=== PATIENT | male | born 1965 | race Hispanic/Latino ===

== ENCOUNTER → 2021-04-06 | Outpatient (CLI) | payer BC ==
[~2021-04-06] VITALS: Ht 172.7 cm; Wt 88.5 kg
[~2021-04-06] MED LIST: AMLO-257 PO; GLIM4TAB36 PO; HYDR-4457 PO; LISI40TA9 PO; METF-446 PO; REGADENOSON 0.4 MG/5 ML PF SYG IVP SCH; ROSU20TA23 PO; VICTOZA SQ
== END | disposition home or self-care (01) ==
LOC: SHCH 13:01
PROVIDERS: ATTEND Internal Medicine Cardiovascular Disease
DX: I51.7 Cardiomegaly (principal); I20.0 Unstable angina; E66.9 Obesity, unspecified; E78.5 Hyperlipidemia, unspecified; E11.9 Type 2 diabetes mellitus without complications
CPT/HCPCS: 93306; 93356

== ENCOUNTER → 2021-04-10 | Outpatient (CLI) | payer BC ==
[~2021-04-10] MED LIST changes: +REGADENOSON 0.4 MG/5 ML PF SYG IVP ONE; -REGADENOSON 0.4 MG/5 ML PF SYG IVP SCH
== END | disposition home or self-care (01) ==
LOC: SHCH 07:59
PROVIDERS: ATTEND Internal Medicine Cardiovascular Disease
DX: R94.31 Abnormal electrocardiogram [ECG] [EKG] (principal); I20.0 Unstable angina; R06.09 Other forms of dyspnea; I99.8 Other disorder of circulatory system
CPT/HCPCS: 78452; 93017; 96374; A9500 ×2; J2785

== ENCOUNTER 2021-06-06 05:45 | Day surgery (SDC) | payer BC ==
[2021-06-01 09:35] LABS: BASOPHILS % (AUTO) 0.6 % (0.0-5.0); EOSINOPHILS % (AUTO) 2.3 % (0.0-8.0); HEMATOCRIT 53.3 % (42-54); LYMPHOCYTES % (AUTO) 32.5 % (21.0-51.0); MEAN CORPUSCULAR HEMOGLOBIN 25.7 pg (27.0-33.0); MEAN CORPUSCULAR HGB CONC 30.8 g/dL (32.0-36.0); MEAN CORPUSCULAR VOLUME 83.4 fL (79-99); MONOCYTES % (AUTO) 9.7 % (3.0-13.0); NEUTROPHILS % (AUTO) 54.7 % (40.0-77.0); PLATELET COUNT (AUTO) 225 K/uL (130-400); RED BLOOD CELL COUNT(AUTO) 6.39 MIL/uL (4.50-6.20); RED CELL DISTRIBUTION WIDTH 13.6 % (11.0-15.5); WHITE BLOOD COUNT (AUTO) 5.1 K/uL (4.8-10.8)
[2021-06-01 09:42] LABS: APPEARANCE,URINE Clear (CLEAR); BILIRUBIN,URINE Negative (NEGATIVE); COLOR,URINE Yellow (YELLOW); GLUCOSE, URINE (UA) >=1000 mg/dL (NEGATIVE); KETONES,URINE Trace mg/dL (NEGATIVE); LEUKOCYTE ESTERASE ,URINE Small (NEGATIVE); NITRATE,URINE Negative (NEGATIVE); OCCULT BLOOD,URINE Trace (NEGATIVE); PROTEIN,URINE Negative (NEGATIVE); UROBILINOGEN,URINE 0.2 mg/dL (0.2-1.0)
[2021-06-01 09:45] LABS: BACTERIA,URINE Rare /HPF (None Seen); RBC,URINE 0-1 /HPF (0-1); SQUAMOUS EPITHELIAL CELL,UR Rare /HPF (0-2)
[2021-06-01 09:45] LABS: CREATININE 1.5 mg/dL (0.5-1.5); POTASSIUM 4.7 mmol/L (3.5-5.1)
[2021-06-01 09:52] LABS: PROTHROMBIN TIME 10.9 SEC (9.6-11.6)
[2021-06-01 09:53] LABS: PARTIAL THROMBOPLASTIN TIME 26.5 SEC (26.3-35.5)
[2021-06-05 13:33] VITALS: BP 146/74
[2021-06-06] VITALS (12 sets, daily range): BP systolic 117–159; BP diastolic 46–85
[~2021-06-06] VITALS: Ht 172.7 cm; Wt 84.9 kg
[~2021-06-06 05:45] MED LIST changes: -AMLO-257 PO; +ATOR40TA71 PO; +DAPA10TA PO; -HYDR-4457 PO; +INSLAN SQ; -LISI40TA9 PO; -REGADENOSON 0.4 MG/5 ML PF SYG IVP ONE; -ROSU20TA23 PO
[2021-06-06] MEDS: 0.9%NACL 1000ML 1,000 ML IV SCH ×2 (06:40→07:04)
[2021-06-06] MEDS ORDERED: NITROGLYCERIN 50MG VIAL IV ONE (07:09)
[2021-06-06] MEDS ORDERED: IOHEXOL-350 50ML VIAL IV ONE (07:09)
[2021-06-06] MEDS ORDERED: IOHEXOL 350 MG/ML 100ML INFUS..BTL IV ONE (07:09)
[2021-06-06] MEDS ORDERED: LIDOCAINE HCL 400MG/20ML VIAL ONE (07:10)
[2021-06-06] MEDS ORDERED: FENTANYL CITRATE PF 50 MCG/1 ML 2ML VIAL ONE (07:10)
[2021-06-06] MEDS ORDERED: MIDAZOLAM HCL 1 MG/ML 2ML VIAL ONE (07:10)
[2021-06-06] MEDS ORDERED: LABETALOL 20MG VIAL IV ONE (08:05)
[2021-06-06] MEDS ORDERED: METOPROLOL TARTRATE 1 MG/ML 5ML VIAL IV PRN (08:30)
[2021-06-06] MEDS ORDERED: NITROGLYCERIN 0.4 MG SL TAB SL PRN (08:30)
[2021-06-06] MEDS ORDERED: DEXTROSE 50%-WATER 50 ML DISP.SYRIN IV PRN (08:30)
[2021-06-06] MEDS ORDERED: HYDRALAZINE 20MG/ML VIAL IV PRN (08:30)
[2021-06-06] MEDS ORDERED: GLUCAGON 1MG KIT 1 MG ML IM PRN (08:30)
[2021-06-06] MEDS ORDERED: 0.9%NACL 1000ML 1,000 ML IV SCH (08:30)
[2021-06-06] MEDS ORDERED: ISOSORBIDE MONO 30MG SR TAB PO SCH (09:00)
[2021-06-06] MEDS ORDERED: ASPIRIN 81MG CHEW TAB PO SCH (09:00)
[2021-06-06] MEDS ORDERED: INSULIN HUMULIN R 100 UNIT/ML 3ML SQ SCH (11:30)
[2021-06-12] MEDS ORDERED: RANO500T6 PO (14:43)
[2021-06-12] MEDS ORDERED: ASPI-1443 PO (14:43)
[2021-06-12] MEDS ORDERED: HYDR12.54 PO (14:43)
[2021-06-12] MEDS ORDERED: ISOS60TA77 PO (14:43)
[2021-06-12] MEDS ORDERED: METO-391 PO (14:43)
== END 2021-06-06 16:25 | disposition home or self-care (01) ==
LOC: DAH 05:45
PROVIDERS: ATTEND Internal Medicine Cardiovascular Disease
DX: I25.118 Atherosclerotic heart disease of native coronary artery with other forms of angina pectoris (principal); E11.51 Type 2 diabetes mellitus with diabetic peripheral angiopathy without gangrene; I25.82 Chronic total occlusion of coronary artery; I11.0 Hypertensive heart disease with heart failure; I50.32 Chronic diastolic (congestive) heart failure; E66.3 Overweight; E78.5 Hyperlipidemia, unspecified; Z79.82 Long term (current) use of aspirin; Z79.01 Long term (current) use of anticoagulants; Z79.899 Other long term (current) drug therapy; Z98.890 Other specified postprocedural states; Z72.89 Other problems related to lifestyle; Z82.49 Family history of ischemic heart disease and other diseases of the circulatory system; Z83.3 Family history of diabetes mellitus; Z87.891 Personal history of nicotine dependence; Z79.4 Long term (current) use of insulin; Z68.29 Body mass index [BMI] 29.0-29.9, adult
CPT/HCPCS: 36415; 71045; 80048; 81001; 82948 ×2; 85025; 85610; 85730; 87088; 93005; 93458; 93880; 93931; 94010; A4215; A4216; A4221; A4222; A4223 ×3; A4606; A4663; C1894 ×2; J1644; J1815; J2250; J3010; J3490 ×3; J7030; Q9965; Q9967 ×2; 99156; 99157

== ENCOUNTER 2021-06-13 07:30 | Inpatient (IN) | payer BC ==
[2021-06-12 14:11] VITALS: BP 139/77
[~2021-06-13] VITALS: Ht 172.7 cm; Wt 85.3 kg
[~2021-06-13 07:30] MED LIST changes: +ASPI-1443 PO; +HYDR12.54 PO; +ISOS60TA77 PO; +METO-391 PO; +RANO500T6 PO
[2021-06-14] VITALS (33 sets, daily range): BP systolic 100–164; BP diastolic 54–97
[2021-06-14] MEDS ORDERED: 0.9%NACL 1000ML 1,000 ML IV ONE (06:57)
[2021-06-14] MEDS ORDERED: NOREPINEPHRINE BITARTRATE 8 MG in DEXTROSE 5%-WATER 250 ML IV PRN (07:00)
[2021-06-14] MEDS ORDERED: DILTIAZEM 125MG+100 ML NS 125 ML IV PRN (07:00)
[2021-06-14] MEDS ORDERED: AMINOCAPROIC ACID 5,000MG VIAL 15,000 MG in 0.9% NACL 500ML IV.SOLN 420 ML IV PRN (07:00)
[2021-06-14] MEDS ORDERED: EPINEPHRINE PF 1MG AMP 10 MG in 0.9% NACL 250ML 240 ML IV PRN (07:00)
[2021-06-14 07:13] LABS: HEMOGLOBIN A1C 11.2 % (4.0-6.0)
[2021-06-14] MEDS ORDERED: NITROGLYCERIN 50MG/D5W 250ML 1 BOT ONE (07:21)
[2021-06-14] MEDS ORDERED: DELNIDO FORMULA 2 BAG IV ONE (07:26)
[2021-06-14] MEDS ORDERED: NOREPINEPHRINE BITARTRATE 1 MG/1 ML ML IV ONE ×3 (07:27→11:52)
[2021-06-14] MEDS ORDERED: CEFUROXIME SODIUM 1.5 GM VIAL ONE ×3 (07:46→22:28)
[2021-06-14] MEDS ORDERED: ESMOLOL HCL 10 MG/ML 10 ML VIAL ONE (07:51)
[2021-06-14] MEDS ORDERED: LIDOCAINE PF 100MG/5ML (2%) SYRINGE 5ML ONE (07:52)
[2021-06-14] MEDS ORDERED: SODIUM BICARB 50MEQ 50ML VIAL 150 ML ONE (07:52)
[2021-06-14] MEDS ORDERED: HEPARIN 10,000 UNIT/10ML (1,000 UNIT/ML) VIAL ONE ×2 (07:52→09:00)
[2021-06-14] MEDS ORDERED: EPINEPHRINE PF 1MG AMP ONE (07:52)
[2021-06-14] MEDS ORDERED: AMINOCAPROIC ACID 5,000MG VIAL ONE (07:52)
[2021-06-14] MEDS ORDERED: PROTAMINE SULFATE 10 MG/ML 25ML VIAL IV ONE (07:52)
[2021-06-14] MEDS ORDERED: ROCURONIUM 10MG/1ML SYR 10 MG/ML ML ONE ×2 (07:53→11:30)
[2021-06-14] MEDS ORDERED: MIDAZOLAM HCL 1 MG/ML 2ML VIAL ONE (07:53)
[2021-06-14] MEDS ORDERED: PROPOFOL 10 MG/ML 20ML VIAL IV ONE (07:53)
[2021-06-14] MEDS ORDERED: FENTANYL CITRATE PF 50 MCG/1 ML 20ML VIAL IJ ONE (07:53)
[2021-06-14] MEDS ORDERED: KETAMINE 50MG/ML SYRINGE 50 MG/ML DISP.SYRIN IV ONE (07:55)
[2021-06-14 08:37] LABS: ABG BASE EXCESS -4.2 mmol/L (-2.0-3.0); ABG HCO3 20.8 mmol/L (21.0-28.0); ABG OXYGEN SATURATION 99.3 % (95.0-99.0); ABG PCO2 38 mmHg (35-48)
[2021-06-14] MEDS ORDERED: PAPAVERINE HCL 30 MG/ML 2ML VIAL ONE (09:00)
[2021-06-14 11:01] LABS: ABG BASE EXCESS -3.8 mmol/L (-2.0-3.0); ABG HCO3 20.9 mmol/L (21.0-28.0); ABG OXYGEN SATURATION 98.9 % (95.0-99.0); ABG PCO2 36 mmHg (35-48)
[2021-06-14] MEDS ORDERED: THROMBIN-JMI 20000 UNIT KIT TP ONE (11:38)
[2021-06-14 11:42] LABS: ABG HCO3 21.5 mmol/L (21.0-28.0); ABG OXYGEN SATURATION 98.6 % (95.0-99.0); ABG PCO2 36 mmHg (35-48)
[2021-06-14] MEDS ORDERED: CACL 1GM SYG IVP ONE (11:52)
[2021-06-14] MEDS ORDERED: MANNITOL 25% 50ML VIAL IV ONE (11:52)
[2021-06-14] MEDS ORDERED: HEPARIN 10,000 UNIT/10ML (1,000 UNIT/ML) VIAL IV ONE (11:52)
[2021-06-14] MEDS ORDERED: AMINOCAPROIC ACID 5,000MG VIAL IV ONE (11:52)
[2021-06-14] MEDS ORDERED: SODIUM BICARB 8.4% 50ML SYRINGE IVP ONE (11:52)
[2021-06-14] MEDS ORDERED: ALBUMIN (HUMAN) 25% 50 ML IV ONE (11:52)
[2021-06-14 12:20] LABS: ABG BASE EXCESS -3.6 mmol/L (-2.0-3.0); ABG HCO3 21.1 mmol/L (21.0-28.0); ABG OXYGEN SATURATION 98.4 % (95.0-99.0); ABG PCO2 37 mmHg (35-48)
[2021-06-14 13:28] LABS: ABG BASE EXCESS -4.8 mmol/L (-2.0-3.0); ABG HCO3 19.5 mmol/L (21.0-28.0); ABG PCO2 34 mmHg (35-48)
[2021-06-14 13:30] LABS: HEMATOCRIT 37.8 % (42-54); MEAN CORPUSCULAR HEMOGLOBIN 26.5 pg (27.0-33.0); MEAN CORPUSCULAR VOLUME 82.7 fL (79-99); RED BLOOD CELL COUNT(AUTO) 4.57 MIL/uL (4.50-6.20); RED CELL DISTRIBUTION WIDTH 13.5 % (11.0-15.5); WHITE BLOOD COUNT (AUTO) 8.5 K/uL (4.8-10.8)
[2021-06-14 13:40] LABS: CREATININE 1.2 mg/dL (0.5-1.5); POTASSIUM 4.1 mmol/L (3.5-5.1)
[2021-06-14 13:44] LABS: INR 1.23 (0.85-1.15); MAGNESIUM 2.2 mg/dL (1.80-2.40); PHOSPHORUS 3.3 mg/dL (2.5-4.9); PROTHROMBIN TIME 13.2 SEC (9.6-11.6)
[2021-06-14 13:46] LABS: PARTIAL THROMBOPLASTIN TIME 25.6 SEC (26.3-35.5)
[2021-06-14] MEDS ORDERED: MORPHINE 2 MG SYG ONE (13:56)
[2021-06-14 14:10] LABS: ABG BASE EXCESS -2.8 mmol/L (-2.0-3.0); ABG HCO3 21.7 mmol/L (21.0-28.0); ABG OXYGEN SATURATION 78.3 % (95.0-99.0); ABG PCO2 37 mmHg (35-48)
[2021-06-14 15:14] LABS: ABG BASE EXCESS -2.1 mmol/L (-2.0-3.0); ABG HCO3 21.4 mmol/L (21.0-28.0); ABG OXYGEN SATURATION 97.9 % (95.0-99.0); ABG PCO2 33 mmHg (35-48)
[2021-06-14] MEDS ORDERED: SODIUM BICARB 8.4% 50ML SYRINGE IV PRN (15:30)
[2021-06-14] MEDS ORDERED: CALCIUM GLUC 1GM 1 GM in 0.9%NACL 50ML 50 ML IV PRN (15:30)
[2021-06-14] MEDS ORDERED: SODIUM BICARB 50MEQ 50ML VIAL IV PRN (15:30)
[2021-06-14] MEDS ORDERED: GLUCAGON 1MG KIT 1 MG ML IM PRN (15:30)
[2021-06-14] MEDS ORDERED: MAGNESIUM 2GM PREMIX 50ML 50 ML IV PRN (15:30)
[2021-06-14] MEDS ORDERED: EPINEPHRINE PF 1MG AMP 2 MG in DEXTROSE 5%-WATER 250 ML IV PRN (15:30)
[2021-06-14] MEDS ORDERED: PROPOFOL 1000 MG/100 ML 100 ML IV PRN (15:30)
[2021-06-14] MEDS ORDERED: DEXTROSE 50%-WATER 50 ML DISP.SYRIN IV PRN (15:30)
[2021-06-14] MEDS ORDERED: POTASSIUM PHOS 15 mMOL+NS250ML 250 ML IV PRN (15:30)
[2021-06-14] MEDS ORDERED: ONDANSETRON 4MG INJ IV PRN (15:30)
[2021-06-14] MEDS ORDERED: NACL 0.9% IV PRN (15:30)
[2021-06-14] MEDS ORDERED: ACETAMINOPHEN 325 MG TAB PO PRN (15:30)
[2021-06-14] MEDS ORDERED: 0.9% NACL 500ML IV.SOLN 500 ML IV SCH (15:30)
[2021-06-14] MEDS ORDERED: EPINEPHRINE IV PRN (15:30)
[2021-06-14] MEDS ORDERED: NITROGLYCERIN 50MG/D5W 250ML 250 BOT IV SCH (15:30)
[2021-06-14] MEDS ORDERED: ALBUMIN (HUMAN) 5% 250 ML IV PRN (15:30)
[2021-06-14] MEDS ORDERED: 0.9%NACL 10ML VIAL IVP PRN (15:30)
[2021-06-14] MEDS ORDERED: 0.9%NACL 1000ML 1,000 ML IV SCH (15:30)
[2021-06-14] MEDS ORDERED: NOREPINEPHRIN 4MG/NS 250ML 250 ML IV PRN (15:30)
[2021-06-14] MEDS ORDERED: AMINOCAPROIC ACID 5,000MG VIAL 15,000 MG in 0.9% NACL 250ML 250 ML IV SCH (15:30)
[2021-06-14] MEDS ORDERED: POTASSIUM CHLORIDE 10MEQ/100ML 100 ML IV PRN (15:30)
[2021-06-14] MEDS ORDERED: ACETAMINOPHEN 650 MG SUPPOSITORY RC PRN (15:30)
[2021-06-14] MEDS ORDERED: NICARDIPINE HCL 100MG/ 0.9% NACL 100ML IV PRN (15:30)
[2021-06-14] MEDS ORDERED: 0.9% NACL 250ML 250 ML IV PRN (15:30)
[2021-06-14] MEDS: POTASSIUM CHLORIDE 20MEQ/100ML 100 ML IV PRN ×2 (15:51→18:38)
[2021-06-14] MEDS: INSULIN REGULAR, HUMAN 3ML 100 UNIT in 0.9%NACL 100ML 99 ML IV SCH ×2 (16:06)
[2021-06-14] MEDS ORDERED: ALBUMIN (HUMAN) 5% 500 ML IV SCH (17:00)
[2021-06-14 17:06] LABS: ABG BASE EXCESS -4.7 mmol/L (-2.0-3.0); ABG HCO3 20.4 mmol/L (21.0-28.0); ABG OXYGEN SATURATION 98.1 % (95.0-99.0); ABG PCO2 38 mmHg (35-48)
[2021-06-14] MEDS: MORPHINE 2 MG SYG IV PRN (17:26)
[2021-06-14] MEDS ORDERED: IPRATROPIUM 0.5 MG/2.5 ML INH IH PRN (18:00)
[2021-06-14 18:33] LABS: ABG BASE EXCESS -2.2 mmol/L (-2.0-3.0); ABG PCO2 41 mmHg (35-48)
[2021-06-14] MEDS: HYDROCODONE/ACETAMINOPHEN 5/325 MG TAB PO PRN ×2 (19:15→23:20)
[2021-06-14] MEDS ORDERED: PHARMACY COMMUNICATION MISC SCH (20:00)
[2021-06-14] MEDS: MORPHINE 4 MG SYG IV PRN (21:19)
[2021-06-14] MEDS ORDERED: CEFUROXIME SODIUM 1.5 GM VIAL IVP SCH (22:30)
[2021-06-15] VITALS (53 sets, daily range): BP systolic 97–169; BP diastolic 51–81
[2021-06-15] MEDS: POTASSIUM CHLORIDE 20MEQ/100ML 100 ML IV PRN ×2 (01:30→16:53)
[2021-06-15 03:31] LABS: ABG BASE EXCESS -1.7 mmol/L (-2.0-3.0); ABG HCO3 23.6 mmol/L (21.0-28.0); ABG OXYGEN SATURATION 96.5 % (95.0-99.0); ABG PCO2 42 mmHg (35-48)
[2021-06-15] MEDS: HYDROCODONE/ACETAMINOPHEN 5/325 MG TAB PO PRN ×2 (03:36→08:01)
[2021-06-15 03:53] LABS: HEMATOCRIT 36.4 % (42-54); MEAN CORPUSCULAR HGB CONC 30.8 g/dL (32.0-36.0); MEAN CORPUSCULAR VOLUME 84.7 fL (79-99); PLATELET COUNT (AUTO) 111 K/uL (130-400); WHITE BLOOD COUNT (AUTO) 7.8 K/uL (4.8-10.8)
[2021-06-15 04:03] LABS: INR 1.08 (0.85-1.15); PROTHROMBIN TIME 11.7 SEC (9.6-11.6)
[2021-06-15 04:04] LABS: PARTIAL THROMBOPLASTIN TIME 26.4 SEC (26.3-35.5)
[2021-06-15 04:08] LABS: CREATININE 1.2 mg/dL (0.5-1.5); MAGNESIUM 2.1 mg/dL (1.80-2.40); PHOSPHORUS 4.5 mg/dL (2.5-4.9); POTASSIUM 4.5 mmol/L (3.5-5.1)
[2021-06-15] MEDS: INSULIN REGULAR, HUMAN 3ML 100 UNIT in 0.9%NACL 100ML 99 ML IV SCH ×2 (06:26)
[2021-06-15] MEDS: PANTOPRAZOLE 40 MG/VIAL IVP SCH (08:01)
[2021-06-15] MEDS: ENOXAPARIN SODIUM 40 MG/0.4 ML SYRINGE SQ SCH (08:45)
[2021-06-15] MEDS: HYDROCHLOROTHIAZIDE 25 MG TABLET PO SCH (08:46)
[2021-06-15] MEDS: ASPIRIN 81MG CHEW TAB PO SCH (08:47)
[2021-06-15] MEDS ORDERED: ISOSORBIDE MONO 60MG SR TAB PO SCH (09:00)
[2021-06-15] MEDS ORDERED: METOPROLOL SUCCINATE 50 MG TAB.SR.24H PO SCH (09:00)
[2021-06-15] MEDS ORDERED: METOPROLOL TARTRATE 25 MG TAB PO SCH (12:30)
[2021-06-15] MEDS ORDERED: LISINOPRIL 5 MG TABLET PO SCH ×2 (12:30)
[2021-06-15] MEDS ORDERED: NACL IV PRN ×2 (13:00)
[2021-06-15] MEDS ORDERED: NICARDIPINE HCL IV SCH ×2 (13:00)
[2021-06-15] MEDS ORDERED: NICARDIPINE HCL IV PRN ×2 (13:00)
[2021-06-15] MEDS ORDERED: NACL IV SCH ×2 (13:00)
[2021-06-15] MEDS: MORPHINE 4 MG SYG IV PRN (18:41)
[2021-06-16] VITALS (23 sets, daily range): BP systolic 3–156; BP diastolic 2–108
[2021-06-16] MEDS: HYDROCODONE/ACETAMINOPHEN 5/325 MG TAB PO PRN (02:05)
[2021-06-16 05:33] LABS: HEMATOCRIT 32.2 % (42-54); MEAN CORPUSCULAR HEMOGLOBIN 25.8 pg (27.0-33.0); MEAN CORPUSCULAR HGB CONC 30.4 g/dL (32.0-36.0); MEAN CORPUSCULAR VOLUME 84.7 fL (79-99); RED BLOOD CELL COUNT(AUTO) 3.8 MIL/uL (4.50-6.20); RED CELL DISTRIBUTION WIDTH 14.2 % (11.0-15.5); WHITE BLOOD COUNT (AUTO) 10.2 K/uL (4.8-10.8)
[2021-06-16 05:42] LABS: CREATININE 1.2 mg/dL (0.5-1.5); POTASSIUM 3.7 mmol/L (3.5-5.1)
[2021-06-16] MEDS: POTASSIUM CHLORIDE 20MEQ/100ML 100 ML IV PRN ×2 (06:15→08:14)
[2021-06-16] MEDS: HYDROCHLOROTHIAZIDE 25 MG TABLET PO SCH (08:12)
[2021-06-16] MEDS: ASPIRIN 81MG CHEW TAB PO SCH (08:12)
[2021-06-16] MEDS: METOPROLOL TARTRATE 50 MG TAB PO SCH ×3 (08:12→20:19)
[2021-06-16] MEDS: PANTOPRAZOLE 40 MG TAB DR PO SCH (08:12)
[2021-06-16] MEDS: LISINOPRIL 5 MG TABLET PO SCH (08:12)
[2021-06-16] MEDS: PANTOPRAZOLE 40 MG/VIAL IVP SCH (08:13)
[2021-06-16] MEDS: ENOXAPARIN SODIUM 40 MG/0.4 ML SYRINGE SQ SCH (08:14)
[2021-06-16] MEDS ORDERED: METOPROLOL TARTRATE 50 MG TAB PO SCH (09:00)
[2021-06-16] MEDS: MORPHINE 2 MG SYG IV PRN (12:52)
[2021-06-16] MEDS: INSULIN HUMULIN R 100 UNIT/ML 3ML SQ SCH ×3 (12:53→20:22)
[2021-06-16] MEDS ORDERED: CEFAZOLIN SODIUM 1 GM VIAL ONE (23:54)
[2021-06-17] MEDS ORDERED: CEFAZOLIN SODIUM 1 GM VIAL IVP SCH
[2021-06-17 03:28] LABS: HEMATOCRIT 31.4 % (42-54); MEAN CORPUSCULAR HEMOGLOBIN 26.6 pg (27.0-33.0); MEAN CORPUSCULAR HGB CONC 30.9 g/dL (32.0-36.0); MEAN CORPUSCULAR VOLUME 86.3 fL (79-99); RED BLOOD CELL COUNT(AUTO) 3.64 MIL/uL (4.50-6.20); RED CELL DISTRIBUTION WIDTH 14.2 % (11.0-15.5); WHITE BLOOD COUNT (AUTO) 9.8 K/uL (4.8-10.8)
[2021-06-17 03:38] LABS: CREATININE 1.2 mg/dL (0.5-1.5); POTASSIUM 3.6 mmol/L (3.5-5.1)
[2021-06-17] MEDS: INSULIN HUMULIN R 100 UNIT/ML 3ML SQ SCH ×7 (06:39→20:22)
[2021-06-17 07:00] VITALS: BP 140/73
[2021-06-17] MEDS: ASPIRIN 81MG CHEW TAB PO SCH (08:40)
[2021-06-17] MEDS: HYDROCHLOROTHIAZIDE 25 MG TABLET PO SCH (08:41)
[2021-06-17] MEDS: LISINOPRIL 5 MG TABLET PO SCH (08:45)
[2021-06-17] MEDS: METOPROLOL TARTRATE 50 MG TAB PO SCH ×2 (08:46→20:17)
[2021-06-17] MEDS: PANTOPRAZOLE 40 MG TAB DR PO SCH (08:46)
[2021-06-17] MEDS: HYDROCODONE/ACETAMINOPHEN 5/325 MG TAB PO PRN ×2 (08:58→11:17)
[2021-06-17] MEDS: PANTOPRAZOLE 40 MG/VIAL IVP SCH (09:00)
[2021-06-17] MEDS ORDERED: INSULIN GLARGINE 100 UNITS/ML 10 ML VIAL SQ SCH (09:00)
[2021-06-17] MEDS: ENOXAPARIN SODIUM 40 MG/0.4 ML SYRINGE SQ SCH (09:01)
[2021-06-17 11:00] VITALS: BP 113/58
[2021-06-17] MEDS ORDERED: SODIUM CHLORIDE 3% FOR INHALATION 4 ML/AMP VIAL.NEB IH ONE (11:07)
[2021-06-17 16:00] VITALS: BP 144/72
[2021-06-17 20:16] VITALS: BP 144/70
[2021-06-17] MEDS: ATORVASTATIN 40 MG TABLET PO SCH (20:17)
[2021-06-18] VITALS (9 sets, daily range): BP systolic 111–158; BP diastolic 65–79
[2021-06-18] MEDS: INSULIN HUMULIN R 100 UNIT/ML 3ML SQ SCH ×7 (05:31→20:05)
[2021-06-18 06:27] LABS: BASOPHILS % (AUTO) 0.3 % (0.0-5.0); EOSINOPHILS % (AUTO) 2.6 % (0.0-8.0); HEMATOCRIT 32.9 % (42-54); MEAN CORPUSCULAR HEMOGLOBIN 25.7 pg (27.0-33.0); MEAN CORPUSCULAR HGB CONC 30.7 g/dL (32.0-36.0); MEAN CORPUSCULAR VOLUME 83.7 fL (79-99); MONOCYTES % (AUTO) 12.4 % (3.0-13.0); NEUTROPHILS % (AUTO) 63.9 % (40.0-77.0); NUCLEATED RED BLOOD CELLS 0.3 % (0.0-0.19); PLATELET COUNT (AUTO) 196 K/uL (130-400); RED BLOOD CELL COUNT(AUTO) 3.93 MIL/uL (4.50-6.20); RED CELL DISTRIBUTION WIDTH 13.8 % (11.0-15.5); WHITE BLOOD COUNT (AUTO) 7.4 K/uL (4.8-10.8)
[2021-06-18 06:37] LABS: CREATININE 1.1 mg/dL (0.5-1.5); POTASSIUM 3.8 mmol/L (3.5-5.1)
[2021-06-18] MEDS: INSULIN GLARGINE 100 UNITS/ML 10 ML VIAL SQ SCH (08:59)
[2021-06-18] MEDS: LISINOPRIL 20 MG TABLET PO SCH (09:01)
[2021-06-18] MEDS: METOPROLOL TARTRATE 50 MG TAB PO SCH ×3 (09:01→19:52)
[2021-06-18] MEDS: HYDROCHLOROTHIAZIDE 25 MG TABLET PO SCH (09:02)
[2021-06-18] MEDS: PANTOPRAZOLE 40 MG TAB DR PO SCH (09:02)
[2021-06-18] MEDS: ASPIRIN 81MG CHEW TAB PO SCH (09:02)
[2021-06-18] MEDS: ENOXAPARIN SODIUM 40 MG/0.4 ML SYRINGE SQ SCH (09:03)
[2021-06-18] MEDS: ATORVASTATIN 40 MG TABLET PO SCH (19:52)
[2021-06-19 04:30] VITALS: BP 137/78
[2021-06-19] MEDS: INSULIN HUMULIN R 100 UNIT/ML 3ML SQ SCH ×5 (07:09→11:44)
[2021-06-19 08:00] VITALS: BP 142/65
[2021-06-19] MEDS: PANTOPRAZOLE 40 MG TAB DR PO SCH (08:55)
[2021-06-19] MEDS: ASPIRIN 81MG CHEW TAB PO SCH (08:55)
[2021-06-19] MEDS: HYDROCHLOROTHIAZIDE 25 MG TABLET PO SCH (08:56)
[2021-06-19] MEDS: LISINOPRIL 20 MG TABLET PO SCH (08:56)
[2021-06-19] MEDS: METOPROLOL TARTRATE 50 MG TAB PO SCH ×2 (08:58→11:43)
[2021-06-19] MEDS ORDERED: ISOSORBIDE MONO 30MG SR TAB PO SCH (09:00)
[2021-06-19] MEDS ORDERED: CLOPIDOGREL 75MG TAB PO SCH (09:00)
[2021-06-19] MEDS: INSULIN GLARGINE 100 UNITS/ML 10 ML VIAL SQ SCH (09:05)
[2021-06-19] MEDS ORDERED: PANT40TA PO (11:45)
[2021-06-19] MEDS ORDERED: CLOP75TA14 PO (11:45)
[2021-06-19] MEDS ORDERED: Isosorbide Mono 30MG Sr Tab PO (11:45)
[2021-06-19] MEDS ORDERED: LISI20TA24 PO (11:45)
[2021-06-19] MEDS ORDERED: METO50 PO (11:45)
[2021-06-19] MEDS ORDERED: ACET1TAB25 PO (11:49)
[2021-06-19 12:00] VITALS: BP 125/75
== END 2021-06-19 15:00 | disposition home or self-care (01) | DRG 235 ==
LOC: DAHIP 06-14 05:38 → 2CV 06-14 13:01 → 2CH 06-15 05:55 → 2DH 06-17 17:13
PROVIDERS: ADMIT Internal Medicine; ATTEND Internal Medicine
PROC: 5A1221Z Performance of Cardiac Output, Continuous (ICD-10-PCS; 2021-06-14)
PROC: 03HY32Z Insertion of Monitoring Device into Upper Artery, Percutaneous Approach (ICD-10-PCS; 2021-06-14)
PROC: 5A2204Z Restoration of Cardiac Rhythm, Single (ICD-10-PCS; 2021-06-14)
PROC: 5A09357 Assistance with Respiratory Ventilation, Less than 24 Consecutive Hours, Continuous Positive Airway Pressure (ICD-10-PCS; 2021-06-14)
PROC: 02100Z9 Bypass Coronary Artery, One Artery from Left Internal Mammary, Open Approach (ICD-10-PCS; principal; 2021-06-14 07:30)
PROC: 02100AW Bypass Coronary Artery, One Artery from Aorta with Autologous Arterial Tissue, Open Approach (ICD-10-PCS; 2021-06-14 07:30)
PROC: 03BC4ZZ Excision of Left Radial Artery, Percutaneous Endoscopic Approach (ICD-10-PCS; 2021-06-14 07:30)
PROC: 5A09357 Assistance with Respiratory Ventilation, Less than 24 Consecutive Hours, Continuous Positive Airway Pressure (ICD-10-PCS; 2021-06-15)
PROC: 5A09357 Assistance with Respiratory Ventilation, Less than 24 Consecutive Hours, Continuous Positive Airway Pressure (ICD-10-PCS; 2021-06-16)
PROC: 5A09357 Assistance with Respiratory Ventilation, Less than 24 Consecutive Hours, Continuous Positive Airway Pressure (ICD-10-PCS; 2021-06-18)
PROC: 5A09357 Assistance with Respiratory Ventilation, Less than 24 Consecutive Hours, Continuous Positive Airway Pressure (ICD-10-PCS; 2021-06-19)
DX: I25.10 Atherosclerotic heart disease of native coronary artery without angina pectoris (principal); I50.33 Acute on chronic diastolic (congestive) heart failure; I11.0 Hypertensive heart disease with heart failure; D69.6 Thrombocytopenia, unspecified; E11.65 Type 2 diabetes mellitus with hyperglycemia; E78.5 Hyperlipidemia, unspecified; Z20.822 Contact with and (suspected) exposure to COVID-19; M19.90 Unspecified osteoarthritis, unspecified site; R50.82 Postprocedural fever; R94.39 Abnormal result of other cardiovascular function study; Z79.4 Long term (current) use of insulin; Z79.84 Long term (current) use of oral hypoglycemic drugs; Z79.899 Other long term (current) drug therapy; Z90.79 Acquired absence of other genital organ(s); Z83.3 Family history of diabetes mellitus; Z82.49 Family history of ischemic heart disease and other diseases of the circulatory system; Z82.5 Family history of asthma and other chronic lower respiratory diseases; Z82.3 Family history of stroke; Z82.0 Family history of epilepsy and other diseases of the nervous system; Z80.7 Family history of other malignant neoplasms of lymphoid, hematopoietic and related tissues
CPT/HCPCS: 36415; 71045; 80048; 82435; 82803; 82947; 82948; 83036; 83605; 83735; 84100; 84132; 84145; 84295; 85018; 85025; 85027; 85610; 85730; 86140; 86850; 86900; 86901; 86923; 87040; 87088; 87635; 94002; 94640; 94660; 94664; 94667; 97039; A4606; A7048; C1729; C1757; C9113; G0378; J0171; J0690; J0697; J1644; J1650; J1815; J2001; J2150; J2250; J2270; J2405; J2440; J2704; J2720; J3010; J3480; J3490; J7030; J7040; J7050; P9045; P9047

== ENCOUNTER 2022-03-08 06:09 | Day surgery (SDC) | payer BC ==
[2022-03-02 13:52] LABS: BASOPHILS % (AUTO) 0.9 % (0.0-5.0); EOSINOPHILS % (AUTO) 2.8 % (0.0-8.0); LYMPHOCYTES % (AUTO) 37.4 % (21.0-51.0); MEAN CORPUSCULAR HEMOGLOBIN 24.8 pg (27.0-33.0); MEAN CORPUSCULAR HGB CONC 30.2 g/dL (32.0-36.0); MEAN CORPUSCULAR VOLUME 82.1 fL (79-99); MONOCYTES % (AUTO) 9.8 % (3.0-13.0); NEUTROPHILS % (AUTO) 48.7 % (40.0-77.0); PLATELET COUNT (AUTO) 260 K/uL (130-400); RED BLOOD CELL COUNT(AUTO) 6.58 MIL/uL (4.50-6.20); RED CELL DISTRIBUTION WIDTH 15.3 % (11.0-15.5); WHITE BLOOD COUNT (AUTO) 5.7 K/uL (4.8-10.8)
[2022-03-02 14:11] LABS: CREATININE 1.7 mg/dL (0.5-1.5); POTASSIUM 5.3 mmol/L (3.5-5.1)
[2022-03-02 14:14] LABS: INR 0.94 (0.85-1.15); PROTHROMBIN TIME 10.3 SEC (9.6-11.6)
[2022-03-02 14:15] LABS: PARTIAL THROMBOPLASTIN TIME 25.2 SEC (26.3-35.5)
[2022-03-06 16:20] VITALS: BP 115/66
[~2022-03-08] VITALS: Ht 172.7 cm; Wt 88.3 kg
[~2022-03-08 06:09] MED LIST changes: +BACITRACIN 3.5 GM TUBE OP ONE; +CEFAZOLIN SODIUM 1 GM VIAL IVP SCH; +CEFAZOLIN SODIUM 2 GM VIAL IV ONE; -ISOS60TA77 PO; +Isosorbide Mono 30MG Sr Tab PO; +LISI20TA24 PO; -METO-391 PO; +METO50 PO; +PANT40TA PO; -RANO500T6 PO
[2022-03-08 07:00] VITALS: BP 132/75
[2022-03-08] MEDS ORDERED: 0.9%NACL 1000ML 1,000 ML IV ONE (07:13)
[2022-03-08] MEDS ORDERED: BACITRACIN 28.4 GM OINT TP ONE (07:40)
[2022-03-08] MEDS ORDERED: BUPIVACAINE/PF 0.25% 30ML VIAL IJ ONE (08:02)
== END 2022-03-08 08:00 | disposition home or self-care (01) ==
LOC: DAH 06:09
PROVIDERS: ATTEND Urology
DX: N47.1 Phimosis (principal); I25.2 Old myocardial infarction; Z79.01 Long term (current) use of anticoagulants; Z79.899 Other long term (current) drug therapy; Z53.8 Procedure and treatment not carried out for other reasons
CPT/HCPCS: 36415; 71045; 80048; 82948; 85025; 85610; 85730; 87635 ×2; 93005; A4213; A4216; A4223; A4600; A6260; C9803; J3490; J7030; J0690

== ENCOUNTER 2022-03-29 07:16 | Day surgery (SDC) | payer BC ==
[2022-03-23 12:00] LABS: BASOPHILS % (AUTO) 0.8 % (0.0-5.0); EOSINOPHILS % (AUTO) 2.1 % (0.0-8.0); LYMPHOCYTES % (AUTO) 31.1 % (21.0-51.0); MEAN CORPUSCULAR HEMOGLOBIN 24.8 pg (27.0-33.0); MEAN CORPUSCULAR HGB CONC 30.4 g/dL (32.0-36.0); MEAN CORPUSCULAR VOLUME 81.4 fL (79-99); MONOCYTES % (AUTO) 8.7 % (3.0-13.0); PLATELET COUNT (AUTO) 255 K/uL (130-400); RED BLOOD CELL COUNT(AUTO) 6.14 MIL/uL (4.50-6.20); RED CELL DISTRIBUTION WIDTH 14.9 % (11.0-15.5); WHITE BLOOD COUNT (AUTO) 6.5 K/uL (4.8-10.8)
[2022-03-23 12:14] LABS: INR 0.95 (0.85-1.15); PROTHROMBIN TIME 10.4 SEC (9.6-11.6)
[2022-03-23 12:15] LABS: PARTIAL THROMBOPLASTIN TIME 24.5 SEC (26.3-35.5)
[2022-03-23 12:17] LABS: CREATININE 1.5 mg/dL (0.5-1.5); POTASSIUM 5.1 mmol/L (3.5-5.1)
[2022-03-28 09:24] VITALS: BP 135/76
[2022-03-29] VITALS (15 sets, daily range): BP systolic 70–132; BP diastolic 34–79
[~2022-03-29] VITALS: Ht 172.7 cm; Wt 87.8 kg
[~2022-03-29 07:16] MED LIST changes: -BACITRACIN 3.5 GM TUBE OP ONE; -CEFAZOLIN SODIUM 2 GM VIAL IV ONE
[2022-03-29] MEDS ORDERED: 0.9%NACL 1000ML 1,000 ML IV ONE (08:04)
[2022-03-29] MEDS ORDERED: CEFAZOLIN SODIUM 1 GM VIAL ONE (08:05)
[2022-03-29] MEDS ORDERED: PROPOFOL 10 MG/ML 20ML VIAL IV ONE (10:10)
[2022-03-29] MEDS ORDERED: DEXAMETHASONE SOD PHOSPHATE 10MG/ML 1ML VIAL ONE ×2 (10:10→10:11)
[2022-03-29] MEDS ORDERED: MIDAZOLAM HCL 1 MG/ML 2ML VIAL ONE (10:10)
[2022-03-29] MEDS ORDERED: ONDANSETRON 4MG INJ ONE (10:10)
[2022-03-29] MEDS ORDERED: FENTANYL CITRATE PF 50 MCG/1 ML 2ML VIAL ONE (10:11)
[2022-03-29] MEDS ORDERED: LIDOCAINE HCL-MPF 2% 5ML VIAL ONE (10:12)
[2022-03-29] MEDS ORDERED: BACITRACIN 28.4 GM OINT TP ONE (10:14)
[2022-03-29] MEDS ORDERED: BUPIVACAINE/PF 0.25% 10ML VIAL IJ ONE (10:14)
[2022-03-29] MEDS ORDERED: MEPERIDINE-PF 25 MG/ML SYG ONE (10:43)
[2022-03-29] MEDS ORDERED: KETOROLAC 30MG VIAL (30MG/ML) ONE (10:59)
[2022-03-29] MEDS ORDERED: EPHEDRINE SULFATE 50 MG/ML AMPULE ONE (11:36)
== END 2022-03-29 12:35 | disposition home or self-care (01) ==
LOC: DAH 07:16
PROVIDERS: ATTEND Urology
DX: N47.1 Phimosis (principal); I10 Essential (primary) hypertension; E11.9 Type 2 diabetes mellitus without complications; E78.5 Hyperlipidemia, unspecified; E03.9 Hypothyroidism, unspecified; M19.90 Unspecified osteoarthritis, unspecified site; Z79.01 Long term (current) use of anticoagulants; Z79.899 Other long term (current) drug therapy
CPT/HCPCS: 80048; 85025; 85610; 85730; 87426; 36415; 71045; 93005; 54161; 82948 ×2; A6260; A4663; J7030 ×2; A4606; J3010; J0690; J1100 ×2; J3490 ×3; J2250; J2704; J2405; J1885; J2175; A4215; A4223; A4222; A4221